=== PATIENT | female | born 1940 | race Caucasian/White ===

== ENCOUNTER 2017-01-24 12:14 | Inpatient (IN) ==
[2017-01-24] MEDS ORDERED: SODIUM CHLORIDE 0.9% 1,000 ML IV ONE (15:40)
[2017-01-24] MEDS ORDERED: diphenhydrAMINE CAP 25 MG CAPSULE PO PRN (15:58)
[2017-01-24] MEDS ORDERED: guaiFENesin/DM ER 600-30 MG TABLET PO PRN (15:58)
[2017-01-24] MEDS: MEPERIDINE 25 MG/1 ML VIAL IV PRN ×2 (16:00→20:11)
[2017-01-24] MEDS ORDERED: CLOPIDOGREL 75 MG TABLET PO SCH (16:00)
[2017-01-24] MEDS: ONDANSETRON 4 MG/2 ML VIAL IV PRN (16:00)
[2017-01-24] MEDS ORDERED: LEVOFLOXACIN INJ 500 MG in PREMIX 1 EACH IV SCH (17:00)
[2017-01-24] MEDS: ASPIRIN EC 81 MG TABLET PO SCH (17:57)
[2017-01-24] MEDS: ATORVASTATIN 20 MG TABLET PO SCH (17:57)
[2017-01-24] MEDS: DOCUSATE SODIUM 100 MG CAPSULE PO SCH (17:57)
[2017-01-24] MEDS: PANTOPRAZOLE 40 MG TABLET PO SCH (17:58)
[2017-01-24] MEDS: SODIUM CHLORIDE 0.9% 1,000 ML IV SCH (18:10)
[2017-01-24 19:00] LABS: Basophils # 0.1 10*3/uL (0.0-0.2); Basophils % 1.5 % (0.0-0.8); Eosinophils # 0.2 10*3/uL (0.0-0.87); Eosinophils % 2.8 % (0.00-10.9); Hematocrit 38.3 VOL% (35.7-47.0); Hemoglobin 12.9 GM/DL (12.0-16.0); Immature Granulocytes % 0.5 %; Immature Granulocytes Absolute 0.04 #; Lymphocytes # 1.6 10*3/uL (1.4-4.0); Lymphocytes % 18.8 % (21.3-54.2); Mean Corpuscular HGB Conc 33.7 GM/DL (32-36); Mean Corpuscular Hemoglobin 30 PG (27-34); Mean Platelet Volume 10.6 FL (9.6-12.0); Monocytes # 0.5 10*3/uL (0.11-0.8); Monocytes % 6.2 % (1.7-12.7); Neutrophils # 6.1 10*3/uL (1.4-7.4); Neutrophils % 70.2 % (38.7-73.9); Platelet Count 357 T/CUMM (130-400); Red Blood Count 4.35 MC/CUMM (3.8-5.5); Red Cell Distribution Width 13.5 % (9.3-17.3); White Blood Count 8.7 T/CUMM (4-12)
[2017-01-24 19:19] LABS: Albumin 3.4 G/DL (3.4-5.0); Bilirubin,Total 0.5 MG/DL (0.2-1.0); Calcium 8.2 MG/DL (8.5-10.1); Potassium 4.9 MMOL/L (3.5-5.1); Total Protein 7.5 G/DL (6.4-8.3)
[2017-01-24 19:20] LABS: Troponin I Only < 0.015 NG/ML (0.00-0.045)
[2017-01-24] MEDS: GENTAMICIN 0.3% OPH SOLN 5 ML BOTTLE LEFT EYE SCH (20:07)
[2017-01-24] MEDS: ENOXAPARIN 30 MG/0.3 ML SYRINGE SUBCUT SCH (20:07)
[2017-01-24 21:47] LABS: Apearance,Urine Slightly Hazy (Clear); Bilirubin,Urine Negative (Negative); Blood, Urine Moderate mg/dL (Negative); Glucose,Urine (UA) Negative (Negative); Ketones,Urine Negative (Negative); Mucus,Urine Occasional /LPF (Occasional); Nitrite,Urine Negative (Negative); Protein,Urine 30 MG/DL; RBC,Urine 7 /HPF (0-4); Squamous Epithelial Cell,Urine Occasional /HPF (0-10); Urine Color Yellow (Yellow); Urine Urobilinogen < 2.0 EU/DL (0.2-1.0); WBC,Urine 78 /HPF (0-6)
[2017-01-25] MEDS: SODIUM CHLORIDE 0.9% 1,000 ML IV SCH ×4 (02:08→23:12)
[2017-01-25] MEDS: MEPERIDINE 25 MG/1 ML VIAL IV PRN (04:25)
[2017-01-25 06:36] LABS: Basophils # 0.1 10*3/uL (0.0-0.2); Basophils % 1.2 % (0.0-0.8); Eosinophils # 0.2 10*3/uL (0.0-0.87); Eosinophils % 2.4 % (0.00-10.9); Hematocrit 35.6 VOL% (35.7-47.0); Hemoglobin 11.7 GM/DL (12.0-16.0); Immature Granulocytes % 0.2 %; Immature Granulocytes Absolute 0.02 #; Lymphocytes # 1.3 10*3/uL (1.4-4.0); Lymphocytes % 15.8 % (21.3-54.2); Mean Corpuscular HGB Conc 32.9 GM/DL (32-36); Mean Corpuscular Hemoglobin 29 PG (27-34); Mean Corpuscular Volume 89.4 FL (87-102); Mean Platelet Volume 10.6 FL (9.6-12.0); Monocytes # 0.5 10*3/uL (0.11-0.8); Monocytes % 6.5 % (1.7-12.7); Neutrophils # 5.9 10*3/uL (1.4-7.4); Neutrophils % 73.9 % (38.7-73.9); Platelet Count 289 T/CUMM (130-400); Red Blood Count 3.98 MC/CUMM (3.8-5.5); Red Cell Distribution Width 13.6 % (9.3-17.3)
[2017-01-25 07:50] LABS: Bilirubin,Total 0.4 MG/DL (0.2-1.0); Calcium 8.5 MG/DL (8.5-10.1); Magnesium 3.2 MG/DL (1.8-2.4); Total Protein 6.7 G/DL (6.4-8.3); VLDL CHOLESTEROL 31.4 MG/DL
[2017-01-25] MEDS: GENTAMICIN 0.3% OPH SOLN 5 ML BOTTLE LEFT EYE SCH ×3 (08:09→20:33)
[2017-01-25] MEDS: HYDROmorphone 2 MG/1 ML VIAL IV PRN ×4 (08:09→22:26)
[2017-01-25] MEDS: KETOROLAC 15 MG/1 ML VIAL IV PRN (11:01)
[2017-01-25] MEDS: ZINC OXIDE PASTE 113 GM TUBE TOP SCH ×2 (11:27→20:33)
[2017-01-25] MEDS: PANTOPRAZOLE 40 MG TABLET PO SCH (12:40)
[2017-01-25] MEDS ORDERED: cefTRIAXone 1,000 MG in SYRINGE 1 EACH IV ONE (13:09)
[2017-01-25] MEDS: DOCUSATE SODIUM 100 MG CAPSULE PO SCH (13:14)
[2017-01-25] MEDS: URSODIOL 300 MG CAPSULE PO SCH ×3 (13:14→20:39)
[2017-01-25] MEDS: ATORVASTATIN 20 MG TABLET PO SCH (13:14)
[2017-01-25] MEDS: ASPIRIN EC 81 MG TABLET PO SCH (13:16)
[2017-01-25] MEDS: ONDANSETRON 4 MG/2 ML VIAL IV PRN ×2 (13:16→22:24)
[2017-01-25] MEDS: PANTOPRAZOLE 40 MG VIAL IV SCH (13:16)
[2017-01-25 14:47] LABS: Calcium 8.6 MG/DL (8.5-10.1); Magnesium 3.2 MG/DL (1.8-2.4); Osmolality,Calculated 340.7 MOS/KG (273-304); Potassium 5.1 MMOL/L (3.5-5.1)
[2017-01-25] MEDS: MEPERIDINE 50 MG/1 ML VIAL IV PRN (15:39)
[2017-01-25] MEDS: PROMETHAZINE 25 MG/1 ML VIAL IM PRN (18:25)
[2017-01-25] MEDS: AMITRIPTYLINE 25 MG TABLET PO SCH ×2 (20:33→20:38)
[2017-01-25] MEDS: ENOXAPARIN 30 MG/0.3 ML SYRINGE SUBCUT SCH (20:33)
[2017-01-26] MEDS: SODIUM CHLORIDE 0.9% 1,000 ML IV SCH (06:07)
[2017-01-26 06:08] LABS: Basophils # 0.1 10*3/uL (0.0-0.2); Basophils % 1.3 % (0.0-0.8); Eosinophils # 0.2 10*3/uL (0.0-0.87); Eosinophils % 2.2 % (0.00-10.9); Hematocrit 37.7 VOL% (35.7-47.0); Hemoglobin 11.9 GM/DL (12.0-16.0); Immature Granulocytes % 0.3 %; Immature Granulocytes Absolute 0.02 #; Lymphocytes # 1.7 10*3/uL (1.4-4.0); Mean Corpuscular HGB Conc 31.6 GM/DL (32-36); Mean Corpuscular Hemoglobin 29 PG (27-34); Mean Corpuscular Volume 93.1 FL (87-102); Mean Platelet Volume 10.2 FL (9.6-12.0); Monocytes # 0.5 10*3/uL (0.11-0.8); Monocytes % 7.3 % (1.7-12.7); Neutrophils # 4.2 10*3/uL (1.4-7.4); Neutrophils % 62.9 % (38.7-73.9); Platelet Count 250 T/CUMM (130-400); Red Blood Count 4.05 MC/CUMM (3.8-5.5); Red Cell Distribution Width 14.1 % (9.3-17.3); White Blood Count 6.7 T/CUMM (4-12)
[2017-01-26] MEDS: ONDANSETRON 4 MG/2 ML VIAL IV PRN ×2 (06:08→13:28)
[2017-01-26] MEDS: HYDROmorphone 2 MG/1 ML VIAL IV PRN (06:08)
[2017-01-26 06:48] LABS: Bilirubin,Total 0.8 MG/DL (0.2-1.0); Calcium 8.5 MG/DL (8.5-10.1); Osmolality,Calculated 343.6 MOS/KG (273-304); Total Protein 6.8 G/DL (6.4-8.3)
[2017-01-26] MEDS ORDERED: cefTRIAXone 1,000 MG in SYRINGE 1 EACH IV ONE (07:00)
[2017-01-26] MEDS: GENTAMICIN 0.3% OPH SOLN 5 ML BOTTLE LEFT EYE SCH ×3 (08:07→21:00)
[2017-01-26] MEDS: MEPERIDINE 50 MG/1 ML VIAL IV PRN ×2 (08:07→19:10)
[2017-01-26] MEDS: PROMETHAZINE 25 MG/1 ML VIAL IM PRN ×2 (08:07→19:10)
[2017-01-26] MEDS: PANTOPRAZOLE 40 MG VIAL IV SCH (08:07)
[2017-01-26] MEDS: SODIUM CHLORIDE 0.45% 1,000 ML IV SCH ×3 (09:18→23:31)
[2017-01-26] MEDS: DOCUSATE SODIUM 100 MG CAPSULE PO SCH (09:19)
[2017-01-26] MEDS: ATORVASTATIN 20 MG TABLET PO SCH (09:19)
[2017-01-26] MEDS: ASPIRIN EC 81 MG TABLET PO SCH (09:19)
[2017-01-26] MEDS: URSODIOL 300 MG CAPSULE PO SCH ×2 (09:19→20:59)
[2017-01-26] MEDS: ZINC OXIDE PASTE 113 GM TUBE TOP SCH ×2 (09:20→21:00)
[2017-01-26] MEDS: traMADol 50 MG TABLET PO PRN ×2 (13:28→20:59)
[2017-01-26] MEDS: KETOROLAC 15 MG/1 ML VIAL IV PRN (13:28)
[2017-01-26] MEDS: CLOPIDOGREL 75 MG TABLET PO SCH (13:28)
[2017-01-26] MEDS ORDERED: TUBERCULIN SKIN TEST 0.1 ML SYRINGE INTRADERM ONE (15:19)
[2017-01-26] MEDS ORDERED: LEVOFLOXACIN INJ 250 MG in PREMIX 1 EACH IV SCH (18:00)
[2017-01-26] MEDS: TEMAZEPAM 15 MG CAPSULE PO PRN (20:59)
[2017-01-26] MEDS: AMITRIPTYLINE 25 MG TABLET PO SCH (20:59)
[2017-01-27] MEDS: SODIUM CHLORIDE 0.45% 1,000 ML IV SCH ×4 (06:16→20:25)
[2017-01-27] MEDS: ASPIRIN EC 81 MG TABLET PO SCH (08:10)
[2017-01-27] MEDS: CLOPIDOGREL 75 MG TABLET PO SCH (08:10)
[2017-01-27] MEDS: DOCUSATE SODIUM 100 MG CAPSULE PO SCH (08:10)
[2017-01-27] MEDS: ZINC OXIDE PASTE 113 GM TUBE TOP SCH ×2 (08:10→21:10)
[2017-01-27] MEDS: ATORVASTATIN 20 MG TABLET PO SCH (08:10)
[2017-01-27] MEDS: URSODIOL 300 MG CAPSULE PO SCH ×2 (08:10→21:09)
[2017-01-27] MEDS: ONDANSETRON 4 MG/2 ML VIAL IV PRN ×2 (08:11→21:00)
[2017-01-27] MEDS: MEPERIDINE 50 MG/1 ML VIAL IV PRN (08:11)
[2017-01-27] MEDS: PANTOPRAZOLE 40 MG VIAL IV SCH (08:11)
[2017-01-27] MEDS: GENTAMICIN 0.3% OPH SOLN 5 ML BOTTLE LEFT EYE SCH ×3 (11:01→21:10)
[2017-01-27] MEDS: traMADol 50 MG TABLET PO PRN ×2 (14:10→21:45)
[2017-01-27] MEDS ORDERED: MAGNESIUM HYDROXIDE SUSP 30 ML UDCUP PO PRN (14:44)
[2017-01-27] MEDS ORDERED: BISACODYL 5 MG TABLET PO PRN (14:44)
[2017-01-27] MEDS ORDERED: LACTULOSE 20 GM/30 ML UDCUP PO PRN (14:44)
[2017-01-27] MEDS: HYDROmorphone 2 MG/1 ML VIAL IV PRN (20:56)
[2017-01-27] MEDS: AMITRIPTYLINE 25 MG TABLET PO SCH (21:09)
[2017-01-27] MEDS: TEMAZEPAM 15 MG CAPSULE PO PRN (21:09)
[2017-01-28] MEDS: SODIUM CHLORIDE 0.45% 1,000 ML IV SCH ×2 (03:16→07:57)
[2017-01-28 06:52] LABS: Basophils # 0.1 10*3/uL (0.0-0.2); Basophils % 1.3 % (0.0-0.8); Eosinophils # 0.3 10*3/uL (0.0-0.87); Eosinophils % 3.1 % (0.00-10.9); Hematocrit 34.3 VOL% (35.7-47.0); Immature Granulocytes % 0.3 %; Immature Granulocytes Absolute 0.03 #; Lymphocytes # 1.5 10*3/uL (1.4-4.0); Lymphocytes % 17.2 % (21.3-54.2); Mean Corpuscular HGB Conc 32.1 GM/DL (32-36); Mean Corpuscular Hemoglobin 29 PG (27-34); Mean Corpuscular Volume 91.5 FL (87-102); Mean Platelet Volume 10.1 FL (9.6-12.0); Monocytes # 0.6 10*3/uL (0.11-0.8); Monocytes % 6.8 % (1.7-12.7); Neutrophils # 6.2 10*3/uL (1.4-7.4); Neutrophils % 71.3 % (38.7-73.9); Platelet Count 192 T/CUMM (130-400); Red Blood Count 3.75 MC/CUMM (3.8-5.5); Red Cell Distribution Width 13.7 % (9.3-17.3); White Blood Count 8.6 T/CUMM (4-12)
[2017-01-28 07:26] LABS: Calcium 8.3 MG/DL (8.5-10.1); Osmolality,Calculated 302.6 MOS/KG (273-304); Potassium 4.2 MMOL/L (3.5-5.1)
[2017-01-28] MEDS: CLOPIDOGREL 75 MG TABLET PO SCH (08:05)
[2017-01-28] MEDS: ZINC OXIDE PASTE 113 GM TUBE TOP SCH ×2 (08:05→21:27)
[2017-01-28] MEDS: PANTOPRAZOLE 40 MG VIAL IV SCH (08:05)
[2017-01-28] MEDS: DOCUSATE SODIUM 100 MG CAPSULE PO SCH (08:06)
[2017-01-28] MEDS: ASPIRIN EC 81 MG TABLET PO SCH (08:06)
[2017-01-28] MEDS: ATORVASTATIN 20 MG TABLET PO SCH (08:06)
[2017-01-28] MEDS: URSODIOL 300 MG CAPSULE PO SCH ×2 (08:06→21:24)
[2017-01-28] MEDS: traMADol 50 MG TABLET PO PRN ×2 (08:06→17:53)
[2017-01-28] MEDS: GENTAMICIN 0.3% OPH SOLN 5 ML BOTTLE LEFT EYE SCH ×3 (08:07→21:30)
[2017-01-28] MEDS: SODIUM CHLORIDE 0.9% 1,000 ML IV SCH ×2 (08:33→17:45)
[2017-01-28] MEDS: MEPERIDINE 50 MG/1 ML VIAL IV PRN (09:20)
[2017-01-28] MEDS: LEVOFLOXACIN INJ 250 MG in PREMIX 1 EACH IV SCH (17:44)
[2017-01-28] MEDS: AMITRIPTYLINE 25 MG TABLET PO SCH (21:24)
[2017-01-28] MEDS: KETOROLAC 15 MG/1 ML VIAL IV PRN (21:24)
[2017-01-28] MEDS: TEMAZEPAM 15 MG CAPSULE PO PRN (21:24)
[2017-01-29 06:20] LABS: Basophils # 0.1 10*3/uL (0.0-0.2); Basophils % 0.8 % (0.0-0.8); Eosinophils # 0.3 10*3/uL (0.0-0.87); Eosinophils % 3.8 % (0.00-10.9); Hematocrit 34.6 VOL% (35.7-47.0); Hemoglobin 11.3 GM/DL (12.0-16.0); Immature Granulocytes % 0.4 %; Immature Granulocytes Absolute 0.03 #; Lymphocytes # 1.3 10*3/uL (1.4-4.0); Mean Corpuscular HGB Conc 32.7 GM/DL (32-36); Mean Corpuscular Hemoglobin 30 PG (27-34); Mean Corpuscular Volume 90.6 FL (87-102); Mean Platelet Volume 10.2 FL (9.6-12.0); Monocytes # 0.5 10*3/uL (0.11-0.8); Monocytes % 6.5 % (1.7-12.7); Neutrophils # 5.3 10*3/uL (1.4-7.4); Neutrophils % 71.5 % (38.7-73.9); Platelet Count 176 T/CUMM (130-400); Red Blood Count 3.82 MC/CUMM (3.8-5.5); Red Cell Distribution Width 13.4 % (9.3-17.3); White Blood Count 7.4 T/CUMM (4-12)
[2017-01-29 06:51] LABS: Calcium 8.1 MG/DL (8.5-10.1); Osmolality,Calculated 298.4 MOS/KG (273-304); Potassium 3.9 MMOL/L (3.5-5.1)
[2017-01-29] MEDS: traMADol 50 MG TABLET PO PRN (06:55)
[2017-01-29] MEDS: SODIUM CHLORIDE 0.9% 1,000 ML IV SCH ×2 (06:59→15:43)
[2017-01-29] MEDS: PANTOPRAZOLE 40 MG VIAL IV SCH (08:57)
[2017-01-29] MEDS: KETOROLAC 15 MG/1 ML VIAL IV PRN ×2 (09:03→16:27)
[2017-01-29] MEDS: URSODIOL 300 MG CAPSULE PO SCH ×2 (09:06→22:22)
[2017-01-29] MEDS: DOCUSATE SODIUM 100 MG CAPSULE PO SCH (09:06)
[2017-01-29] MEDS: ONDANSETRON 4 MG/2 ML VIAL IV PRN (09:06)
[2017-01-29] MEDS: ZINC OXIDE PASTE 113 GM TUBE TOP SCH ×2 (09:06→22:22)
[2017-01-29] MEDS: CLOPIDOGREL 75 MG TABLET PO SCH (09:06)
[2017-01-29] MEDS: ASPIRIN EC 81 MG TABLET PO SCH (09:06)
[2017-01-29] MEDS: ATORVASTATIN 20 MG TABLET PO SCH (09:06)
[2017-01-29] MEDS: GENTAMICIN 0.3% OPH SOLN 5 ML BOTTLE LEFT EYE SCH ×3 (09:06→22:22)
[2017-01-29] MEDS: LEVOFLOXACIN INJ 250 MG in PREMIX 1 EACH IV SCH (17:24)
[2017-01-29] MEDS: AMITRIPTYLINE 25 MG TABLET PO SCH (22:22)
[2017-01-29] MEDS: ACETAMINOPHEN 325 MG/10.15 ML UDCUP PO PRN (22:23)
[2017-01-30] MEDS: SODIUM CHLORIDE 0.9% 1,000 ML IV SCH ×2 (02:42→15:58)
[2017-01-30] MEDS: KETOROLAC 15 MG/1 ML VIAL IV PRN (04:37)
[2017-01-30 06:16] LABS: Basophils # 0.1 10*3/uL (0.0-0.2); Eosinophils # 0.3 10*3/uL (0.0-0.87); Eosinophils % 4.2 % (0.00-10.9); Hematocrit 33.2 VOL% (35.7-47.0); Hemoglobin 11.2 GM/DL (12.0-16.0); Immature Granulocytes % 0.2 %; Immature Granulocytes Absolute 0.01 #; Lymphocytes % 16.1 % (21.3-54.2); Mean Corpuscular HGB Conc 33.7 GM/DL (32-36); Mean Corpuscular Hemoglobin 30 PG (27-34); Mean Corpuscular Volume 89.5 FL (87-102); Mean Platelet Volume 10.4 FL (9.6-12.0); Monocytes # 0.6 10*3/uL (0.11-0.8); Monocytes % 9.1 % (1.7-12.7); Neutrophils # 4.3 10*3/uL (1.4-7.4); Neutrophils % 69.4 % (38.7-73.9); Platelet Count 151 T/CUMM (130-400); Red Blood Count 3.71 MC/CUMM (3.8-5.5); Red Cell Distribution Width 13.2 % (9.3-17.3); White Blood Count 6.2 T/CUMM (4-12)
[2017-01-30 06:44] LABS: Osmolality,Calculated 295.4 MOS/KG (273-304); Potassium 3.8 MMOL/L (3.5-5.1)
[2017-01-30] MEDS: ASPIRIN EC 81 MG TABLET PO SCH (09:44)
[2017-01-30] MEDS: traMADol 50 MG TABLET PO PRN ×2 (09:44→17:55)
[2017-01-30] MEDS: DOCUSATE SODIUM 100 MG CAPSULE PO SCH (09:44)
[2017-01-30] MEDS: PANTOPRAZOLE 40 MG VIAL IV SCH (09:45)
[2017-01-30] MEDS: GENTAMICIN 0.3% OPH SOLN 5 ML BOTTLE LEFT EYE SCH ×3 (09:45→20:51)
[2017-01-30] MEDS: CLOPIDOGREL 75 MG TABLET PO SCH (09:45)
[2017-01-30] MEDS: ATORVASTATIN 20 MG TABLET PO SCH (09:45)
[2017-01-30] MEDS: URSODIOL 300 MG CAPSULE PO SCH ×2 (09:45→20:40)
[2017-01-30] MEDS: ZINC OXIDE PASTE 113 GM TUBE TOP SCH ×2 (09:45→20:51)
[2017-01-30 15:47] LABS: Apearance,Urine Slightly Hazy (Clear); Bacteria,Urine Occasional /HPF (Few); Bilirubin,Urine Negative (Negative); Blood, Urine Moderate mg/dL (Negative); Glucose,Urine (UA) Negative (Negative); Ketones,Urine Negative (Negative); Mucus,Urine Occasional /LPF (Occasional); Nitrite,Urine Negative (Negative); Protein,Urine Negative; RBC,Urine 13 /HPF (0-4); Squamous Epithelial Cell,Urine Occasional /HPF (0-10); Urine Color Yellow (Yellow); Urine Specific Gravity 1.009 (1.001-1.035); Urine Urobilinogen < 2.0 EU/DL (0.2-1.0); WBC,Urine 50 /HPF (0-6)
[2017-01-30] MEDS: LEVOFLOXACIN INJ 250 MG in PREMIX 1 EACH IV SCH (17:57)
[2017-01-30] MEDS: ACETAMINOPHEN 325 MG/10.15 ML UDCUP PO PRN (19:49)
[2017-01-30] MEDS ORDERED: KETOROLAC 15 MG/1 ML VIAL IV ONE (19:59)
[2017-01-30] MEDS: AMITRIPTYLINE 25 MG TABLET PO SCH (20:40)
[2017-01-31] MEDS: ALBUTEROL/IPRATROPIUM 3 ML NEB RESP TX PRN ×2 (00:11→16:00)
[2017-01-31] MEDS: traMADol 50 MG TABLET PO PRN ×2 (03:50→14:58)
[2017-01-31] MEDS: SODIUM CHLORIDE 0.9% 1,000 ML IV SCH ×3 (03:52→17:25)
[2017-01-31] MEDS: CLOPIDOGREL 75 MG TABLET PO SCH (08:44)
[2017-01-31] MEDS: URSODIOL 300 MG CAPSULE PO SCH (08:44)
[2017-01-31] MEDS: DOCUSATE SODIUM 100 MG CAPSULE PO SCH (08:44)
[2017-01-31] MEDS: ASPIRIN EC 81 MG TABLET PO SCH (08:44)
[2017-01-31] MEDS: PANTOPRAZOLE 40 MG VIAL IV SCH (08:44)
[2017-01-31] MEDS: ATORVASTATIN 20 MG TABLET PO SCH (10:20)
[2017-01-31] MEDS: ZINC OXIDE PASTE 113 GM TUBE TOP SCH (10:20)
[2017-01-31] MEDS: GENTAMICIN 0.3% OPH SOLN 5 ML BOTTLE LEFT EYE SCH ×2 (10:21→17:23)
[2017-01-31] MEDS: LEVOFLOXACIN INJ 250 MG in PREMIX 1 EACH IV SCH (17:25)
[2017-02-01] MEDS: AMITRIPTYLINE 25 MG TABLET PO SCH (00:20)
[2017-02-01] MEDS: URSODIOL 300 MG CAPSULE PO SCH ×2 (00:20→09:09)
[2017-02-01] MEDS: traMADol 50 MG TABLET PO PRN (00:20)
[2017-02-01] MEDS: ONDANSETRON 4 MG/2 ML VIAL IV PRN (00:57)
[2017-02-01] MEDS: ZINC OXIDE PASTE 113 GM TUBE TOP SCH ×2 (01:00→09:10)
[2017-02-01] MEDS: GENTAMICIN 0.3% OPH SOLN 5 ML BOTTLE LEFT EYE SCH ×2 (01:01→09:10)
[2017-02-01] MEDS: SODIUM CHLORIDE 0.9% 1,000 ML IV SCH ×2 (04:49→15:09)
[2017-02-01 05:50] LABS: Basophils % 0.6 % (0.0-0.8); Eosinophils # 0.2 10*3/uL (0.0-0.87); Eosinophils % 2.9 % (0.00-10.9); Hematocrit 31.9 VOL% (35.7-47.0); Hemoglobin 10.5 GM/DL (12.0-16.0); Immature Granulocytes % 0.4 %; Immature Granulocytes Absolute 0.02 #; Lymphocytes % 20.2 % (21.3-54.2); Mean Corpuscular HGB Conc 32.9 GM/DL (32-36); Mean Corpuscular Hemoglobin 30 PG (27-34); Mean Corpuscular Volume 90.4 FL (87-102); Mean Platelet Volume 10.2 FL (9.6-12.0); Monocytes # 0.7 10*3/uL (0.11-0.8); Monocytes % 12.7 % (1.7-12.7); Neutrophils # 3.2 10*3/uL (1.4-7.4); Neutrophils % 63.2 % (38.7-73.9); Platelet Count 133 T/CUMM (130-400); Red Blood Count 3.53 MC/CUMM (3.8-5.5); Red Cell Distribution Width 13.2 % (9.3-17.3); White Blood Count 5.1 T/CUMM (4-12)
[2017-02-01 06:23] LABS: Calcium 7.8 MG/DL (8.5-10.1); Osmolality,Calculated 287.8 MOS/KG (273-304); Potassium 3.4 MMOL/L (3.5-5.1)
[2017-02-01] MEDS ORDERED: POTASSIUM CHLORIDE 20 MEQ TABLET PO SCH (09:00)
[2017-02-01] MEDS: ATORVASTATIN 20 MG TABLET PO SCH (09:09)
[2017-02-01] MEDS: ASPIRIN EC 81 MG TABLET PO SCH (09:09)
[2017-02-01] MEDS: CLOPIDOGREL 75 MG TABLET PO SCH (09:09)
[2017-02-01] MEDS: DOCUSATE SODIUM 100 MG CAPSULE PO SCH (09:09)
[2017-02-01] MEDS: PANTOPRAZOLE 40 MG VIAL IV SCH (09:09)
[2017-02-01 12:23] VITALS: BP 157/83
[2017-02-01] MEDS ORDERED: AMPICILLIN 500 MG CAPSULE PO SCH (13:00)
== END 2017-02-01 15:45 | disposition swing bed (61) | DRG 683 ==
LOC: N.5E 14:09